=== PATIENT | female | born 1985 | race Caucasian/White ===

== ENCOUNTER 2024-12-19 00:11 | Emergency (ER) | payer OTHER, SELFPAY ==
[2024-12-19 00:17] VITALS: BP 117/67
[2024-12-19 00:48] LABS: Hematocrit 37.6 % (37.0-47.0); Hemoglobin 12.1 g/dL (12.0-16.0); Mean Corp Hgb Conc. 32.2 g/dL (33.0-37.0); Mean Corpuscular Volume 80.3 fL (81.0-99.0); Nucleated Red Blood Cells % 0 %; Platelet Count 196 10^3/uL (130-400); Red Cell Dist. Width 14.2 % (11.5-14.5)
[2024-12-19 01:00] VITALS: BP 104/65
[2024-12-19 01:00] LABS: HCG, Serum Qualitative Screen Negative
[2024-12-19 01:04] LABS: ALT (SGPT) 18 U/L (0-35); AST (SGOT) 21 U/L (14-36); Albumin 4.9 g/dl (3.5-5.0); Alkaline Phosphatase 60 U/L (38-126); Blood Urea Nitrogen 13 mg/dl (7-17); Calcium 9.5 mg/dl (8.4-10.2); Carbon Dioxide 26 mmol/L (22-30); Chloride 107 mmol/L (98-107); Glucose 98 mg/dl (70-99); Potassium 4.1 mmol/L (3.5-5.1); Sodium 141 mmol/L (135-145); Total Protein 7.8 g/dl (6.3-8.2); eGFR > 60.00
[2024-12-19 01:08] LABS: COVID-19 Antigen Negative (Negative)
--- NOTE | 2024-12-19 01:28 | ED.GENMED ---
History of Present Illness
General
Chief Complaint: Cough
Source: patient
Exam Limitations: none
Time Seen by Provider: 12/19/24 01:24
Nursing documentation reviewed up to this point in time: agreed with
History of Present Illness
History of Present Illness:
Note:
CHIEF COMPLAINT(S)
Cough
HISTORY OF PRESENT ILLNESS
The patient is a 38-year-old female with no past medical history who presents with a cough and throat pain. Approximately one week ago, she developed an ear infection on the left and was prescribed an oral antibiotic which she took for five days.
She took azithromycin. Four days after completing the antibiotic course, she began experiencing a burning sensation at the back of her throat followed by a cough. The patient also reports chills at home, although she has not measured a fever since
receiving treatment for the ear infection. She also notes feeling cold during the day when the temperature is warm.
She denies a history of allergies, reflux, heartburn, or asthma but mentions using albuterol via a nebulizer in the past, which this time did not alleviate her symptoms at this time. The patient does not report any current chest pain but
occasionally experiences chest discomfort when coughing. She denies recent sickness or contact with anyone ill.
There is some residual discomfort in her left ear from the previous infection. She notes occasional abdominal pain and gagging but denies regular vomiting.
PHYSICAL EXAM
- Nursing notes reviewed and vital signs reviewed.
General: Patient is well appearing and in no acute distress; non-toxic
Skin: Warm and dry, no rashes or lesions
Head: Normocephalic, atraumatic
Eyes: Sclera non-icteric. EOMs intact.
Ears: Bilateral ear canals clear bilaterally, no signs of erythema or debris, no signs of fluid behind the TMs or bulging. No mastoid tenderness bilaterally.
Throat: Mild pharyngeal erythema noted, uvula midline, no tonsillar hypertrophy or exudates
Cardiac: Regular rate and rhythm, no murmurs
Pulm: Normal respiratory effort, occasional scattered rhonchi that clear with coughing
Neuro: CN II-XII intact, no focal neurologic deficits.
Psychiatric: Appropriate mood and affect.
PLAN
- Prescribed a short course of methylprednisolone (Medrol dose pack)
- Encourage maintaining hydration and rest.
- Recommend follow-up with the family doctor after completing the steroids or if symptoms persist.
-Can continue DuoNeb and Tylenol Motrin as needed
- Advise returning to the emergency department if symptoms worsen, such as spiking fever, hemoptysis, or worsening cough.
DIFFERENTIAL DIAGNOSIS
The Differential Diagnosis includes, in no particular order and is not limited to:
1. Viral Upper Respiratory Infection
2. Viral Bronchitis
3. Pharyngitis
4. Reactive Airway Disease
5. Sinusitis
6. Asthma Exacerbation
7. Gastroesophageal Reflux Disease (GERD)
8. Allergic Rhinitis
9. Post-Infectious Cough
10. Laryngitis
CHART REVIEW
Reviewed ER physician documentation from 11/10/2021 patient seen for ankle sprain, no distress no recent [facility] to review
MDM/DISPOSITION
38-year-old female presents to emergency department today with concerns of cough, sore throat following an ear infection she had around a week ago. She reports Tylenol Motrin intermittently help with her symptoms. She has not had any fevers. She
denies shortness of breath. Labs reviewed, CBC, CMP unremarkable. She tested negative for COVID and flu. Her chest x-ray does not show any evidence of pneumonia. Suspect acute bronchitis. Will initiate course of Medrol Dosepak. Discussed
strict return precautions. Patient stable for discharge.
Past History
Past History
ED Past Medical History: None; Negative Asthma, HTN, Hypercholesterolemia or NIDDM
ED Past Surgical History: None
Social History
Tobacco: Non-smoker
Alcohol: None
Personal:
Living: with family
Review of Systems
Review of Systems
All Other Systems: ROS reviewed and negative except as documented in HPI and ROS
Phy Exam
Physical Exam
Physical Exam:
see hpi
Course
Orders/Labs/Results
Orders:
Orders
12/19/24 00:25
Test Result ONCE
Chest [CR Chest - 2 Views ] Urgent
Comment:
Reason For Exam: cough
12/19/24 00:32
COVID-19 Antigen Urgent
Source: Nasal Swab
Complete Blood Count/With Diff Urgent
Comprehensive Metabolic Panel Urgent
HCG, Serum Qualitative Screen Urgent
Influenza A+B Rapid Molecular Urgent
LIZETT Source: Nasal Swab
Specimen Description:
Abnormal Lab Results
12/19/24
00:32
MCV 80.3 L fL
(81.0-99.0)
MCH 25.9 L pg
(27.0-31.0)
MCHC 32.2 L g/dL
(33.0-37.0)
MPV 11.6 H fL
(7.4-10.4)
12/19/24 00:32
12/19/24 00:32
Vital Signs
Initial and Last Documented VS:
Initial Vital Signs
Temp Pulse Resp BP Pulse Ox
98.1 F 60 20 117/67 98
12/19/24 00:17 12/19/24 00:17 12/19/24 00:17 12/19/24 00:17 12/19/24 00:17
Last Documented Vital Signs
Temp Pulse Resp BP Pulse Ox
98.1 F 51 15 104/65 99
12/19/24 00:17 12/19/24 01:30 12/19/24 01:30 12/19/24 01:00 12/19/24 02:05
*Pulse Oximetry
SaO2: 98
Oxygen Mode of Delivery: Room air
Patient hypoxic: no
*Critical Care Note
Total Time (30-74mins, 75-104mins- exclusive of procedures): Not Applicable
ED Attending Note
-
Portions of this chart may have been created with voice recognition software.� Occasional wrong word or��sound alike� substitutions may have occurred due to the inherent limitations of voice recognition software.
Discharge Plan
Departure
Patient Disposition: Home (Routine Discharge)
Date of Disposition: 12/19/24
Time of Disposition: 01:51
Patient with high blood pressure during this ER visit?: Yes
Condition: Good
Discharge Problem:
Acute bronchitis
Instructions: Acute Bronchitis, Adult (DC), Viral Upper Respiratory Infection, Adult (DC)
Prescriptions:
New
methylprednisolone [Medrol (Jorge Luis)] 4 mg tablets,dose pack
See Rx Instructions .ROUTE .COMPLEX Qty: 21 0RF
Rx Instructions:
orally per package directions
Referrals:
UNKNOWN - PT DOES,NOT KNOW [Unknown Provider]
Activity Restrictions/Additional Instructions:
You can continue nebulizer treatments if they help you.
You can take Tylenol and Motrin as needed for pain.
Medrol dose pack has been sent to your pharmacy. Please follow package instructions for dosing.
Please follow up with primary care provider in one week.
PLEASE RETURN EMERGENCY DEPARTMENT SHOULD SHE DEVELOP COUGHING UP OF BLOOD, PERSISTENT CHEST PAIN, SHORTNESS OF BREATH, DIFFICULTY BREATHING, FAINTING SPELLS, DIZZINESS, LIGHTHEADEDNESS, PERSISTENT FEVERS OR CHILLS, OR ANY OTHER SIGNS OR SYMPTOMS
WORRISOME TO YOU.
Interventions
Interventions:
*Risk Screen - Suicide Last Done: 12/19/24 00:17
*General Assessment Last Done: 12/19/24 00:17
*Neglect/Abuse Screening Last Done: 12/19/24 00:17
*ED- Fall Risk Assessment Last Done: 12/19/24 00:17
*ED COVID-19 Vaccine History Last Done: 12/19/24 00:17
*Nursing Disposition Last Done: 12/19/24 02:05
ED- Pulmonary Assessment Last Done: 12/19/24 01:50
Discharge Date and Time
Discharge Date/Time: 12/19/24 02:05
Print Language: JAPANESE
[2024-12-19 01:42] VITALS: BMI 27.0
== END 2024-12-19 02:05 | disposition home or self-care (01) ==
LOC: EMR 00:11
PROVIDERS: EMERGENCY PHYSICIAN Student in an Organized Health Care Education/Training Program; FAMILY PHYSICIAN Internal Medicine
DX: J20.9 Acute bronchitis, unspecified (principal); R10.9 Unspecified abdominal pain; R51.9 Headache, unspecified; Z11.52 Encounter for screening for COVID-19; R03.0 Elevated blood-pressure reading, without diagnosis of hypertension; Z88.1 Allergy status to other antibiotic agents; Z91.040 Latex allergy status
CPT/HCPCS: 99283; 71046; 80053; 84703; 85025; 87502; 87811

== ENCOUNTER 2025-05-17 20:48 | Emergency (ER) | payer MEDICAID, SELFPAY ==
[2025-05-17 20:59] VITALS: BP 107/65
[2025-05-17 21:44] LABS: Hematocrit 34.1 % (37.0-47.0); Hemoglobin 11.0 g/dL (12.0-16.0); Mean Corp Hgb Conc. 32.3 g/dL (33.0-37.0); Mean Corpuscular Volume 77.3 fL (81.0-99.0); Nucleated Red Blood Cells % 0 %; Platelet Count 218 10^3/uL (130-400); Red Cell Dist. Width 14.3 % (11.5-14.5)
[2025-05-17 22:01] LABS: COVID-19 Antigen Negative (Negative)
[2025-05-17 22:04] LABS: HCG, Serum Qualitative Screen Negative
[2025-05-17 22:09] LABS: ALT (SGPT) 16 U/L (0-35); AST (SGOT) 20 U/L (14-36); Albumin 4.6 g/dl (3.5-5.0); Alkaline Phosphatase 65 U/L (38-126); Blood Urea Nitrogen 17 mg/dl (7-17); Calcium 9.5 mg/dl (8.4-10.2); Carbon Dioxide 26 mmol/L (22-30); Chloride 103 mmol/L (98-107); Glucose 97 mg/dl (70-99); Potassium 4.0 mmol/L (3.5-5.1); Sodium 138 mmol/L (135-145); Total Protein 7.6 g/dl (6.3-8.2); eGFR > 60.00
--- NOTE | 2025-05-18 | ED.GENMED ---
History of Present Illness
General
Chief Complaint: Breathing Problem
Source: patient
Time Seen by Provider: 05/17/25 23:35
History of Present Illness
History of Present Illness:
This patient is a 39-year-old female presents emergency department complaints of 'breathing problems' that she noted yesterday. It is not particularly associated with activity or position, is on and off without provoking or relieving factors. She
notes a slight sore throat otherwise denies fever, chills, cough, rhinorrhea. She denies recent immobilization, recent trauma, estrogen use, smoking history, pleuritic chest pain, or other PE related signs or symptoms. She denies chest pain, back
pain, neck pain, headache, dizziness. She denies leg swelling.
Past History
Past History
ED Past Medical History: None; Negative Asthma, HTN, Hypercholesterolemia or NIDDM
ED Past Surgical History: and Other ('Tummy tuck')
Social History
Tobacco: Non-smoker
Alcohol: None
Drug: None
Personal:
Living: with family
Employment: Employed
Phy Exam
Physical Exam
Physical Exam:
GENERAL: Alert , in no apparent distress
EYE: pupils equal and reactive
NECK: Supple, no significant adenopathy.
ENT: o/p clr, mmm.
CARDIAC: Regular rate and rhythm .
LUNGS: Clear breath sounds bilaterally, no acute respiratory distress, no wheezes/rales/rhonchi
ABDOMEN: Soft, without focal tenderness, no r/g, no cvat
NEUROLOGICAL: Alert and oriented, no focal neuro deficits
SKIN: Warm and dry, skin intact.
MUSCULOSKELETAL: No edema, well perfused.
PSYCH: Normal and appropriate interaction.
Course
Orders/Labs/Results
Orders:
Orders
05/17/25 21:04
ECG [Electrocardiogram (*1)] Urgent
Reason for Study: Shortness of Breath
Cardiology Consult: Unknown
CR Chest - 2 Views Urgent
Comment:
Reason For Exam: SOB
05/17/25 21:05
EKG- Treatment ONCE
Test Result ONCE
05/17/25 21:21
COVID-19 Antigen Urgent
Source: Nasal Swab
Complete Blood Count/With Diff Urgent
Comprehensive Metabolic Panel Urgent
HCG, Serum Qualitative Screen Urgent
Influenza A+B Rapid Molecular Urgent
LIZETT Source: Nasal Swab
Specimen Description:
Abnormal Lab Results
05/17/25
21:21
Hgb 11.0 L g/dL
(12.0-16.0)
Hct 34.1 L %
(37.0-47.0)
MCV 77.3 L fL
(81.0-99.0)
MCH 24.9 L pg
(27.0-31.0)
MCHC 32.3 L g/dL
(33.0-37.0)
MPV 11.6 H fL
(7.4-10.4)
05/17/25 21:21
05/17/25 21:21
Vital Signs
Initial and Last Documented VS:
Initial Vital Signs
Temp Pulse Resp BP Pulse Ox
98.8 F 68 20 107/65 99
05/17/25 20:59 05/17/25 20:59 05/17/25 20:59 05/17/25 20:59 05/17/25 20:59
Last Documented Vital Signs
Temp Pulse Resp BP Pulse Ox
98.8 F 68 20 107/65 99
05/17/25 20:59 05/17/25 20:59 05/17/25 20:59 05/17/25 20:59 05/17/25 20:59
*Pulse Oximetry
SaO2: 99
Oxygen Mode of Delivery: Room air
Patient hypoxic: no
*Critical Care Note
Total Time (30-74mins, 75-104mins- exclusive of procedures): Not Applicable
Update Note
Update Note:
Patient presents to the Emergency Department with
Number and Complexity of Problems Addressed at the Encounter
� Chronic conditions affecting care:
� Acute Exacerbation and/or Progression of Chronic Illness:
� Differential Diagnosis includes: But not limited to ACS, PE, pericarditis, pneumonia, pneumothorax, asthma, etc. etc.
Amount and/or Complexity of Data to be Reviewed and Analyzed
� I performed an independent evaluation of and my interpretation is:
EKG: Read by me, normal sinus rhythm, normal rate, normal axis, no acute ischemia
CT:
Xrays: Read by radiology NAD
Laboratory Studies: Unremarkable
Other:
� Review of other/old records reveals:
� Clinical information was obtained by an independent historian:
� Prescriptions/Medications Considered but not given:
� Further testing considered but not performed:
Risk of Complications and/or Morbidity or Mortality of Patient Management
� Social determinants of health affecting care:
� Discussion with other providers (PCP, Hospitalists, Consultants, etc):
� Escalation of care including admission/observation vs risk of discharge considered: Extensive workup here unrevealing for cause of her dyspnea. Do not suspect serious etiology such as PE given lack of risk factors or
convincing presentation. ECG not concerning for ACS and no chest pain noted. Patient noted to be awake alert comfortable and in no distress here. Discussed with patient importance of follow-up and reasons to return to the ER.
ED Attending Note
-
Portions of this chart may have been created with voice recognition software.� Occasional wrong word or��sound alike� substitutions may have occurred due to the inherent limitations of voice recognition software.
Discharge Plan
Departure
Patient Disposition: Home (Routine Discharge)
Date of Disposition: 05/18/25
Time of Disposition: 00:05
Patient with high blood pressure during this ER visit?: No
Condition: Good
Discharge Problem:
Dyspnea
Instructions: Shortness of Breath (Dyspnea) (DC)
Prescriptions:
No Action
methylprednisolone [Medrol (Jorge Luis)] 4 mg tablets,dose pack
See Rx Instructions .ROUTE .COMPLEX Qty: 21 0RF
Rx Instructions:
orally per package directions
Referrals:
Jay Bridges MD [Family Provider, Internal Medicine] - Follow up in 2-3 days
Activity Restrictions/Additional Instructions:
IF YOU DEVELOP CHEST PAIN OR PRESSURE, PERSISTENT SHORTNESS OF BREATH, FEVER, SWELLING, VOMITING, OR OTHER WORRISOME SIGNS, PLEASE RETURN TO THE ER IMMEDIATELY!
Interventions
Interventions:
*General Assessment Last Done: 05/17/25 20:59
*Neglect/Abuse Screening Last Done: 05/17/25 20:59
*ED COVID-19 Vaccine History Last Done: 05/17/25 20:59
*ED Influenza Vaccine History Last Done: 05/17/25 20:59
*Risk Screen - Suicide (C-SSRS) Last Done: 05/17/25 20:59
Discharge Date and Time
Print Language: TELUGU
== END 2025-05-18 00:38 | disposition home or self-care (01) ==
LOC: EMR 20:48
PROVIDERS: EMERGENCY PHYSICIAN Emergency Medicine; FAMILY PHYSICIAN Internal Medicine
DX: R06.00 Dyspnea, unspecified (principal); J02.9 Acute pharyngitis, unspecified; Z11.52 Encounter for screening for COVID-19
CPT/HCPCS: 99285; 71046; 80053; 84703; 85025; 87502; 87811; 93005